=== PATIENT | female | born 1975 | race American Indian/Alaskan Native ===

== ENCOUNTER 2021-08-27 23:16 | Emergency (ER) | payer SELFPAY ==
--- NOTE | 2021-08-28 02:24 | Emergency Department Report ---
- General Chief Complaint: Urogenital-Female Stated Complaint: MULTI COMPLAINTS Source: patient Mode of arrival: Ambulatory Limitations: No Limitations - History of Present Illness Initial Comments: Patient is a 46-year-old -Swiss female with no past medical history presents to the ED with complaint of acute onset persistent nasal and sinus congestion, frontal sinus pressure, persistent dry cough, sore throat and body aches and pains for the last 1 month, worse in the last 5 days. Patient states that she has been taking [id number] medication with no relief. Patient denies fever, chills, nausea, vomiting, diarrhea, dizziness, syncope, chest pain, shortness of breath, abdominal pain, dysuria, urinary frequency and urgency and vaginal discharge. MD Complaint: cough, rhinorrhea, nasal congestion, sinus pain -: Sudden, week(s) (1) Severity: moderate Severity scale (0 -10): 4 Quality: dull, aching Consistency: constant Improves With: nothing Associated Symptoms: denies other symptoms, headache, rhinorrhea, nasal congestion, sore throat, cough. denies: fever, chills, myalgias, diaphoresis, chest pain, shortness of breath, abdominal pain, nausea, vomiting, rash, confusion, weight loss, epistaxis, hoarseness, ear pain, other Treatments Prior to Arrival: "cold medicine" - Related Data Previous Rx's Medication Instructions Recorded Last Taken Type Amoxicillin/Potassium Clav 1 each PO Q12H #20 tablet 08/28/21 Unknown Rx [Augmentin 875-125 Tablet] Benzonatate [Tessalon Perles] 100 mg PO Q8HR #30 capsule 08/28/21 Unknown Rx Cetirizine HCl [Zyrtec 10mg tab] 10 mg PO DAILY #30 tablet 08/28/21 Unknown Rx Ibuprofen [Motrin] 600 mg PO Q8H PRN #24 tablet 08/28/21 Unknown Rx metroNIDAZOLE [Flagyl] 500 mg PO Q12HR #14 tab 08/28/21 Unknown Rx predniSONE [Deltasone] 40 mg PO QDAY #10 tab 08/28/21 Unknown Rx Allergies Allergy/AdvReac Type Severity Reaction Status Date / Time No Known Allergies Allergy Verified 08/27/21 23:53 ED Review of Systems ROS: Stated complaint: MULTI COMPLAINTS Other details as noted in HPI Constitutional: denies: chills, fever Eyes: denies: eye pain, eye discharge, vision change ENT: throat pain, congestion, other (Sinus pressure). denies: ear pain, dental pain, hearing loss Respiratory: cough. denies: shortness of breath, wheezing Cardiovascular: denies: chest pain, palpitations Endocrine: no symptoms reported Gastrointestinal: denies: abdominal pain, nausea, vomiting, diarrhea Genitourinary: denies: urgency, dysuria, discharge Musculoskeletal: denies: back pain, joint swelling, arthralgia Skin: denies: rash, lesions Neurological: denies: headache, weakness, paresthesias Psychiatric: denies: anxiety, depression Hematological/Lymphatic: denies: easy bleeding, easy bruising ED Past Medical Hx - Past Medical History Previous Medical History?: No - Surgical History Additional Surgical History: hysterectomy - Social History Smoking Status: Current Every Day Smoker Substance Use Type: None - Medications Home Medications: Home Medications Medication Instructions Recorded Confirmed Last Taken Type Amoxicillin/Potassium Clav 1 each PO Q12H #20 tablet 08/28/21 Unknown Rx [Augmentin 875-125 Tablet] Benzonatate [Tessalon Perles] 100 mg PO Q8HR #30 capsule 08/28/21 Unknown Rx Cetirizine HCl [Zyrtec 10mg tab] 10 mg PO DAILY #30 tablet 08/28/21 Unknown Rx Ibuprofen [Motrin] 600 mg PO Q8H PRN #24 tablet 08/28/21 Unknown Rx metroNIDAZOLE [Flagyl] 500 mg PO Q12HR #14 tab 08/28/21 Unknown Rx predniSONE [Deltasone] 40 mg PO QDAY #10 tab 08/28/21 Unknown Rx ED Physical Exam - General Limitations: No Limitations General appearance: alert, in no apparent distress - Head Head exam: Present: atraumatic, normocephalic, normal inspection - Eye Eye exam: Present: normal appearance, PERRL, EOMI Pupils: Present: normal accommodation - ENT ENT exam: Present: normal orophraynx, mucous membranes moist, TM's normal bilaterally, normal external ear exam, other (Grossly congested nasal passages; palpable frontal and maxillary sinus tenderness) - Neck Neck exam: Present: normal inspection, full ROM, lymphadenopathy (Palpable left anterior cervical lymphadenopathy) - Respiratory Respiratory exam: Present: normal lung sounds bilaterally. Absent: respiratory distress, wheezes, rales, rhonchi, chest wall tenderness, accessory muscle use - Cardiovascular Cardiovascular Exam: Present: regular rate, normal rhythm, normal heart sounds. Absent: systolic murmur, diastolic murmur, rubs, gallop - GI/Abdominal GI/Abdominal exam: Present: soft, normal bowel sounds. Absent: tenderness, guarding, rebound, hyperactive bowel sounds, hypoactive bowel sounds, organomegaly - Extremities Exam Extremities exam: Present: normal inspection, full ROM, normal capillary refill - Back Exam Back exam: Present: normal inspection, full ROM. Absent: tenderness, CVA tenderness (R), muscle spasm, paraspinal tenderness, vertebral tenderness - Neurological Exam Neurological exam: Present: alert, oriented X3, CN II-XII intact, normal gait, reflexes normal - Psychiatric Psychiatric exam: Present: normal affect, normal mood - Skin Skin exam: Present: warm, dry, intact, normal color. Absent: rash ED Course Vital Signs 08/27/21 23:50 Temperature 98.6 F Pulse Rate 80 Respiratory 20 Rate Blood Pressure 151/72 O2 Sat by Pulse 100 Oximetry ED Medical Decision Making - Medical Decision Making This is a 46-year-old -Swiss female with no past medical history presents to the ED with complaint of acute onset persistent nasal and sinus congestion, frontal sinus pressure, persistent dry cough, sore throat and body aches and pains for the last 1 month, worse in the last 5 days. Patient states that she has been taking [id number] medication with no relief. In the ED, patient is alert and oriented x3 and is not in any distress. Based on the history and physical exam findings, the patient will discharge home on medications for suspected acute pansinusitis, bronchitis or URI. Patient was advised to follow-up with her primary care physician in 7 to 10 days for reevaluation or return to the ED immediately if symptoms get worse. - Differential Diagnosis Sinusitis; URI; bronchitis; pharyngitis; Critical care attestation.: If time is entered above; I have spent that time in minutes in the direct care of this critically ill patient, excluding procedure time. ED Disposition Clinical Impression: Acute upper respiratory infection Acute pansinusitis, unspecified Qualifiers: Recurrence: non-recurrent Qualified Code(s): J01.40 - Acute pansinusitis, unspecified Acute bronchitis Qualifiers: Bronchitis organism: other organism Qualified Code(s): J20.8 - Acute bronchitis due to other specified organisms Disposition: 01 HOME / SELF CARE / HOMELESS Is pt being admited?: No Does the pt Need Aspirin: No Condition: Stable Instructions: Acute Bronchitis (ED), Sinusitis, Adult, [id number], Upper Respiratory Infection, Adult, [id number], Acute Bronchitis, Adult, [id number] Additional Instructions: Take medication with food, drink plenty of fluids and follow-up with your primary care physician in 7 to 10 days for reevaluation. Return to the ED immediately if symptoms get worse. Prescriptions: Amoxicillin/Potassium Clav [Augmentin 875-125 Tablet] 1 each PO Q12H #20 tablet predniSONE [Deltasone] 40 mg PO QDAY #10 tab metroNIDAZOLE [Flagyl] 500 mg PO Q12HR #14 tab Ibuprofen [Motrin] 600 mg PO Q8H PRN #24 tablet PRN Reason: Pain Benzonatate [Tessalon Perles] 100 mg PO Q8HR #30 capsule Cetirizine HCl [Zyrtec 10mg tab] 10 mg PO DAILY #30 tablet Referrals: [facility] [Provider Group] - 7-10 days Time of Disposition: 02:24 Print Language: SAMOAN
[2021-08-28 03:05] VITALS: BP 127/81
== END 2021-08-28 03:04 | disposition home or self-care (01) ==
LOC: ED 23:16
DX: J06.9 Acute upper respiratory infection, unspecified (principal); J01.40 Acute pansinusitis, unspecified; J20.8 Acute bronchitis due to other specified organisms; Z90.710 Acquired absence of both cervix and uterus; F17.200 Nicotine dependence, unspecified, uncomplicated
CPT/HCPCS: 99282